=== PATIENT | male | born 1955 | race Caucasian/White ===

== ENCOUNTER 2021-08-31 10:44 | Day surgery (SDC) | payer MEDICARE, BC ==
[~2021-08-31 10:44] MED LIST: Sodium Chloride 0.9% 1,000 ML IV SCH
[2021-08-31] MEDS ORDERED: Propofol 200 MG/20 ML SDV ONE (11:06)
[2021-08-31] MEDS ORDERED: Midazolam 1 MG/ML 2 ML SDV ONE (11:06)
[2021-08-31 14:14] VITALS: BP 127/76; PULSE 52
== END 2021-08-31 13:00 | disposition home or self-care (01) ==
LOC: KA.SDS 10:44
PROVIDERS: ATTEND Family Medicine
DX: Z12.11 Encounter for screening for malignant neoplasm of colon (principal); I25.10 Atherosclerotic heart disease of native coronary artery without angina pectoris; E11.22 Type 2 diabetes mellitus with diabetic chronic kidney disease; N18.31 Chronic kidney disease, stage 3a; E03.4 Atrophy of thyroid (acquired); E66.3 Overweight; E78.00 Pure hypercholesterolemia, unspecified; B18.2 Chronic viral hepatitis C; Z80.0 Family history of malignant neoplasm of digestive organs; Z68.29 Body mass index [BMI] 29.0-29.9, adult
CPT/HCPCS: 00812; 82947; J2250; J2704; J7030